=== PATIENT | female | born 1990 | race Caucasian/White ===

== ENCOUNTER 2016-12-20 19:50 | Inpatient (IN) | payer MEDICAID ==
[~2016-12-20] VITALS: Ht 165.1 cm; Wt 96.0 kg
[~2016-12-20 19:50] MED LIST: DULO30CA2 PO; MULT-29 PO; PREG75 PO; ZOLP10 PO
[2016-12-20 21:00] VITALS: BP 140/84
[2016-12-20] MEDS ORDERED: LITHIUM CARBONATE 600 MG CAPSULE PO SCH (21:00)
[2016-12-20] MEDS: QUEtiapine FUMARATE 300 MG TABLET PO SCH (22:59)
[2016-12-21 06:42] VITALS: BP 110/62
[2016-12-21 08:14] LABS: BASOPHILS % (AUTO) 0.3 % (0.0-2.0); EOSINOPHILS % (AUTO) 2.7 % (1.0-6.0); HEMATOCRIT 44.6 % (36-46); HEMOGLOBIN 15.5 g/dL (12.0-16.0); LYMPHOCYTES # (AUTO) 4.7 K/uL (1.0-4.8); LYMPHOCYTES % (AUTO) 32.9 % (22.0-44.0); MEAN CORPUSCULAR HEMOGLOBIN 33.1 pg (26.0-34.0); MEAN CORPUSCULAR HGB CONC 34.9 G/dL (31.0-37.0); MEAN CORPUSCULAR VOLUME 95 fL (80-100); MONOCYTES # (AUTO) 0.7 K/uL (0.1-1.0); MONOCYTES % (AUTO) 4.6 % (2.0-9.0); NEUTROPHILS # (AUTO) 8.6 K/uL (1.8-7.7); NEUTROPHILS % (AUTO) 59.5 % (40.0-70.0); PLATELET COUNT (AUTO) 272 K/uL (150-450); RED CELL DISTRIBUTION WIDTH 14.2 % (11.5-14.5); WHITE BLOOD COUNT (AUTO) 14.4 K/uL (4.5-11.0)
[2016-12-21 08:30] VITALS: BP 120/68
[2016-12-21] MEDS: NICOTINE 21 MG/24 HOUR PATCH TD SCH (08:32)
[2016-12-21] MEDS: IBUPROFEN 600 MG TABLET PO PRN ×2 (08:36→16:24)
[2016-12-21] MEDS: LORazepam 2 MG TABLET PO PRN ×3 (08:48→17:16)
[2016-12-21 09:07] LABS: HEMOGLOBIN A1C 5.3 % (4.5-6.2)
[2016-12-21 09:10] LABS: ALANINE AMINOTRANSFERASE 28 U/L (12-78); ALBUMIN 3.8 g/dL (3.4-5.0); ANION GAP 10 mmol/L (8-16); ASPARTATE AMINOTRANSFERASE 14 U/L (15-37); BILIRUBIN,TOTAL 0.6 mg/dL (0.1-1.0); CARBON DIOXIDE 24 mmol/L (22-29); CHLORIDE 108 mmol/L (98-107); CHOL/HDL RATIO 5.6 (3.9-5.7); CREATININE 1.06 mg/dL (0.60-1.30); GLOMERULAR FILTR. RATE CALC > 60 mL/min (>60); POTASSIUM 3.9 mmol/L (3.5-5.1); SODIUM SERUM 142 mmol/L (136-145); THYROID STIMULATING HORMONE 4.42 uIU/mL (0.36-3.74); TOTAL PROTEIN, SERUM 7.4 g/dL (6.4-8.2); UREA NITROGEN, BLOOD 6 mg/dL (7-18)
[2016-12-21 09:10] LABS: APPEARANCE,URINE CLEAR (CLEAR); GLUCOSE, URINE (UA) NEGATIVE (NEGATIVE); KETONES,URINE NEGATIVE (NEGATIVE); LEUKOCYTE ESTERASE ,URINE NEGATIVE (NEGATIVE); OCCULT BLOOD,URINE NEGATIVE (NEGATIVE); PH,URINE 5.5 (5.0-8.0); PROTEIN,URINE TRACE (NEGATIVE)
[2016-12-21 09:17] LABS: LITHIUM < 0.20 mmol/L (0.60-1.20)
[2016-12-21 09:41] LABS: ADD UA MICROSCOPIC YES
[2016-12-21 09:44] LABS: RBC,URINE 0-2 /HPF (0-2); SQUAMOUS EPITHELIAL CELL,UR Few /LPF (None Seen); WBC,URINE None Seen /HPF (0-5)
[2016-12-21] MEDS: DULoxetine HCL 30 MG CAPSULE PO SCH (12:02)
[2016-12-21 13:00] VITALS: BP 126/80
[2016-12-21] MEDS: ACETAMINOPHEN 325 MG TABLET PO PRN ×2 (13:04→20:42)
[2016-12-21] MEDS: HALOPERIDOL 5 MG TABLET PO PRN ×2 (14:39→20:42)
[2016-12-21 16:00] VITALS: BP 123/99
[2016-12-21] MEDS: LITHIUM CARBONATE 300 MG CAPSULE PO SCH (16:17)
[2016-12-21] MEDS: CARISOPRODOL 350 MG TABLET PO SCH (16:17)
[2016-12-21] MEDS ORDERED: LORazepam 2 MG/ML VIAL IM ONE (18:15)
[2016-12-21] MEDS ORDERED: DiphenhydrAMINE HCL 50 MG/ML VIAL IM ONE (18:15)
[2016-12-21] MEDS ORDERED: HALOPERIDOL LACTATE 5 MG/ML VIAL IM ONE (18:15)
[2016-12-21] MEDS: QUEtiapine FUMARATE 300 MG TABLET PO SCH (20:25)
[2016-12-21 20:42] VITALS: BP 130/82
[2016-12-21] MEDS: ZOLPIDEM TARTRATE 10 MG TABLET PO PRN (21:02)
[2016-12-22] MEDS: LEVOTHYROXINE SODIUM 25 MCG TABLET PO SCH (06:40)
[2016-12-22 06:51] VITALS: BP 107/76
[2016-12-22 08:00] VITALS: BP 124/71
[2016-12-22] MEDS: ARIPiprazole 15 MG TABLET PO SCH (08:56)
[2016-12-22] MEDS: LITHIUM CARBONATE 300 MG CAPSULE PO SCH ×2 (08:56→16:10)
[2016-12-22] MEDS: NICOTINE 21 MG/24 HOUR PATCH TD SCH (08:56)
[2016-12-22] MEDS: DULoxetine HCL 30 MG CAPSULE PO SCH (08:56)
[2016-12-22] MEDS: CARISOPRODOL 350 MG TABLET PO SCH (08:56)
[2016-12-22] MEDS ORDERED: DULoxetine HCL 60 MG CAPSULE PO SCH (09:00)
[2016-12-22] MEDS: LORazepam 2 MG TABLET PO PRN ×2 (09:07→13:21)
[2016-12-22] MEDS: HALOPERIDOL 5 MG TABLET PO PRN ×3 (09:50→19:08)
[2016-12-22] MEDS: HYDROCODONE/ACETAMINOPHEN 5-325 MG TABLET PO PRN ×2 (11:01→17:17)
[2016-12-22 16:08] VITALS: BP 115/69
[2016-12-22 16:10] VITALS: BP 115/69
[2016-12-22] MEDS: IBUPROFEN 600 MG TABLET PO PRN (16:10)
[2016-12-22 17:17] VITALS: BP 124/70
[2016-12-22] MEDS: LORazepam 1 MG TABLET PO PRN (17:56)
[2016-12-22] MEDS: -LIDODERM PATCH NOTE- MISC SCH ×2 (20:11)
[2016-12-22] MEDS: QUEtiapine FUMARATE 300 MG TABLET PO SCH (20:11)
[2016-12-22] MEDS: ZOLPIDEM TARTRATE 10 MG TABLET PO PRN (21:01)
[2016-12-23] VITALS (7 sets, daily range): BP systolic 100–120; BP diastolic 55–77
[2016-12-23] MEDS: LEVOTHYROXINE SODIUM 25 MCG TABLET PO SCH (06:28)
[2016-12-23 08:10] LABS: BASOPHILS % (AUTO) 0.4 % (0.0-2.0); EOSINOPHILS % (AUTO) 3.6 % (1.0-6.0); HEMOGLOBIN 14.7 g/dL (12.0-16.0); LYMPHOCYTES # (AUTO) 4.3 K/uL (1.0-4.8); MEAN CORPUSCULAR HEMOGLOBIN 32.4 pg (26.0-34.0); MEAN CORPUSCULAR HGB CONC 34.1 G/dL (31.0-37.0); MEAN CORPUSCULAR VOLUME 95 fL (80-100); MONOCYTES # (AUTO) 0.7 K/uL (0.1-1.0); NEUTROPHILS # (AUTO) 7.5 K/uL (1.8-7.7); PLATELET COUNT (AUTO) 275 K/uL (150-450); RED BLOOD CELL COUNT(AUTO) 4.52 MIL/uL (4.00-5.20); RED CELL DISTRIBUTION WIDTH 13.9 % (11.5-14.5)
[2016-12-23] MEDS: DULoxetine HCL 30 MG CAPSULE PO SCH (08:47)
[2016-12-23] MEDS: NICOTINE 21 MG/24 HOUR PATCH TD SCH (08:47)
[2016-12-23] MEDS: ARIPiprazole 15 MG TABLET PO SCH (08:47)
[2016-12-23] MEDS: LITHIUM CARBONATE 300 MG CAPSULE PO SCH ×2 (08:47→16:13)
[2016-12-23] MEDS: CARISOPRODOL 350 MG TABLET PO SCH (08:47)
[2016-12-23] MEDS: LIDOCAINE HCL 5% TRANSDERMAL PATCH TD SCH (08:48)
[2016-12-23] MEDS: HYDROCODONE/ACETAMINOPHEN 5-325 MG TABLET PO PRN ×3 (08:50→21:47)
[2016-12-23] MEDS: LORazepam 1 MG TABLET PO PRN ×3 (08:51→17:08)
[2016-12-23] MEDS: HALOPERIDOL 5 MG TABLET PO PRN ×3 (10:25→20:13)
[2016-12-23] MEDS: IBUPROFEN 600 MG TABLET PO PRN (13:06)
[2016-12-23] MEDS ORDERED: HALOPERIDOL LACTATE 5 MG/ML VIAL ONE (14:15)
[2016-12-23] MEDS ORDERED: DiphenhydrAMINE HCL 50 MG/ML VIAL ONE (14:15)
[2016-12-23] MEDS ORDERED: LORazepam 2 MG/ML VIAL ONE (14:15)
[2016-12-23] MEDS: QUEtiapine FUMARATE 300 MG TABLET PO SCH (20:13)
[2016-12-23] MEDS: -LIDODERM PATCH NOTE- MISC SCH ×2 (21:01)
[2016-12-23] MEDS: ZOLPIDEM TARTRATE 10 MG TABLET PO PRN (21:01)
[2016-12-24] MEDS: LEVOTHYROXINE SODIUM 25 MCG TABLET PO SCH (06:29)
[2016-12-24 07:07] VITALS: BP 118/60
[2016-12-24 08:18] VITALS: BP 122/73
[2016-12-24] MEDS: LITHIUM CARBONATE 300 MG CAPSULE PO SCH ×2 (08:26→15:36)
[2016-12-24] MEDS: CARISOPRODOL 350 MG TABLET PO SCH (08:26)
[2016-12-24] MEDS: DULoxetine HCL 20 MG CAPSULE PO SCH ×2 (08:26→15:36)
[2016-12-24] MEDS: LORazepam 1 MG TABLET PO PRN ×3 (08:27→17:12)
[2016-12-24] MEDS: HALOPERIDOL 5 MG TABLET PO PRN ×2 (08:27→12:45)
[2016-12-24] MEDS: HYDROCODONE/ACETAMINOPHEN 5-325 MG TABLET PO PRN ×3 (08:28→20:18)
[2016-12-24] MEDS: LIDOCAINE HCL 5% TRANSDERMAL PATCH TD SCH (08:30)
[2016-12-24] MEDS: NICOTINE 21 MG/24 HOUR PATCH TD SCH (08:30)
[2016-12-24 16:09] VITALS: BP 117/69
[2016-12-24] MEDS: QUEtiapine FUMARATE 300 MG TABLET PO SCH (20:18)
[2016-12-24] MEDS: ZOLPIDEM TARTRATE 10 MG TABLET PO PRN (20:18)
[2016-12-24] MEDS: IBUPROFEN 600 MG TABLET PO PRN (20:19)
[2016-12-24] MEDS: -LIDODERM PATCH NOTE- MISC SCH ×2 (20:19)
[2016-12-25] MEDS ORDERED: DULO20CA30 PO ×3 (00:53→00:55)
[2016-12-25] MEDS ORDERED: LITH300C3 PO (00:57)
[2016-12-25] MEDS ORDERED: QUET300T2 PO (00:57)
[2016-12-25] MEDS: LEVOTHYROXINE SODIUM 25 MCG TABLET PO SCH (06:43)
[2016-12-25 07:17] VITALS: BP 119/76
[2016-12-25] MEDS: HYDROCODONE/ACETAMINOPHEN 5-325 MG TABLET PO PRN (07:20)
[2016-12-25] MEDS: LORazepam 1 MG TABLET PO PRN (08:00)
[2016-12-25] MEDS: HALOPERIDOL 5 MG TABLET PO PRN (08:00)
[2016-12-25 08:19] VITALS: BP 115/73
[2016-12-25] MEDS: LITHIUM CARBONATE 300 MG CAPSULE PO SCH (09:47)
[2016-12-25] MEDS: CARISOPRODOL 350 MG TABLET PO SCH (09:47)
[2016-12-25] MEDS: DULoxetine HCL 20 MG CAPSULE PO SCH (09:47)
[2016-12-25] MEDS: LIDOCAINE HCL 5% TRANSDERMAL PATCH TD SCH (09:48)
[2016-12-25] MEDS: NICOTINE 21 MG/24 HOUR PATCH TD SCH (09:48)
[2016-12-25] MEDS ORDERED: LEVO25TA4 PO ×2 (10:12→10:15)
== END 2016-12-25 10:40 | disposition home or self-care (01) | DRG 753 ==
LOC: B3A 20:25 → EDSTATUS 20:46
PROVIDERS: ATTEND Psychiatry & Neurology Child & Adolescent Psychiatry
DX: F31.4 Bipolar disorder, current episode depressed, severe, without psychotic features (principal); R45.851 Suicidal ideations; E03.9 Hypothyroidism, unspecified; E78.1 Pure hyperglyceridemia; F10.10 Alcohol abuse, uncomplicated; E78.5 Hyperlipidemia, unspecified; F12.90 Cannabis use, unspecified, uncomplicated; F17.210 Nicotine dependence, cigarettes, uncomplicated; G89.29 Other chronic pain; D72.829 Elevated white blood cell count, unspecified; Z71.6 Tobacco abuse counseling; Z71.41 Alcohol abuse counseling and surveillance of alcoholic; Z71.51 Drug abuse counseling and surveillance of drug abuser; Z79.899 Other long term (current) drug therapy; Z88.8 Allergy status to other drugs, medicaments and biological substances; M54.9 Dorsalgia, unspecified; Z84.89 Family history of other specified conditions
CPT/HCPCS: 83036; 84439; 84443; J1200; J1630; J2060